=== PATIENT | female | born 1980 | race Caucasian/White ===

== ENCOUNTER 2017-04-13 03:12 | Emergency (ER) | payer OTHER ==
[~2017-04-13] VITALS: Ht 167.6 cm; Wt 83.0 kg
[2017-04-13] MEDS ORDERED: ZOFRAN ODT SL STA (03:39)
[2017-04-13] MEDS ORDERED: TORADOL IM STA (03:39)
--- NOTE | 2017-04-13 03:43 | ER.PDOC ---
General Chief Complaint: Abdomen Pain Stated Complaint: R UPPER QUAD ABD PAIN Time seen by MD: 03:42 Source: patient Exam Limitations: no limitations History of Present Illness Initial Comments RUQ abdominal pain Timing/Duration: 1-3 hours Severity/Quality: moderate, sharpness Radiation: no radiation Associated Symptoms: nausea/vomiting Exacerbated by: nothing Relieved By: nothing Allergies: Coded Allergies: No Known Allergies (Unverified , 04/13/17) Vital Signs First Vital Signs Date Time Temp Pulse Resp B/P (MAP) Pulse Ox O2 Delivery O2 Flow Rate FiO2 04/13/17 03:22 98.0 81 16 100 04/13/17 03:29 125/70 (88) Last Vital Signs Date Time Temp Pulse Resp B/P (MAP) Pulse Ox O2 Delivery O2 Flow Rate FiO2 04/13/17 03:29 98.0 81 16 125/70 (88) 100 Past Medical History Medical History: thyroid disease Surgical History: tubal LMP (females 10-50): tubal Social History Smoking: non-smoker Alcohol Use: occassionally Drug Use: none Constitutional: no symptoms reported Respiratory: no symptoms reported Cardiovascular: no symptoms reported Gastrointestinal: see HPI Genitourinary: no symptoms reported All Other Systems: Reviewed and Negative Physical Exam General Appearance: No Apparent Distress, WD/WN Neck: Non-Tender, Full Range of Motion, Supple, Normal Inspection Respiratory: chest non-tender, lungs clear, normal breath sounds, no respiratory distress, no accessory muscle use Cardiovascular: Normal Peripheral Pulses, Regular Rate, Rhythm, No Edema, No Gallop, No JVD, No Murmur Gastrointestinal: Normal Bowel Sounds, No Organomegaly, No Pulsatile Mass, Guarding, Tenderness (RUQ) Back: Normal Inspection, No CVA Tenderness, No Vertebral Tenderness Extremities: Normal Range of Motion, Non-Tender, Normal Inspection, No Pedal Edema, No Calf Tenderness, Normal Capillary Refill, Pelvis Stable Neurologic/Psychiatric: personal financial representative II-XII NML as Tested, No Motor/Sensory Deficits, Alert, Normal Mood/Affect, Oriented x 3 Skin: Normal Color, Warm/Dry EKG/XRAY/CT/US Utrasound Comments: Gall bladder sludge Course Blood Pressure Systolic: 125 Blood Pressure Diastolic: 70 Blood Pressure Mean: 88 Departure Time of Disposition: 05:42 Disposition: 01 HOME, SELF-CARE Impression: Primary Impression: Gall bladder disease Additional Impressions: Biliary colic UTI (urinary tract infection) Condition: Stable Referrals: VINEET FELIZ PA-C (PCP) PRIMARY CARE PROVIDER Additional Instructions: Cipro Tramadol F/U with Dr. Gaviria in 1-2 days, call for appointment. Problem Qualifiers Additional Impressions: UTI (urinary tract infection) Urinary tract infection type: site unspecified Hematuria presence: without hematuria Qualified Codes: N39.0 - Urinary tract infection, site not specified BOGDAN GEORGE MD Apr 13, 2017 03:43
[2017-04-13] MEDS ORDERED: TORADOL ONE (03:51)
[2017-04-13] MEDS ORDERED: ZOFRAN ODT ONE (03:51)
[2017-04-13 03:53] LABS: BASOPHIL % 0.4 % (0.0-0.2); BILIRUBIN,URINE NEGATIVE (NEGATIVE); EOSINOPHIL # 0.1 10^3/uL (0.0-0.2); EOSINOPHIL % 2.8 % (0.0-5.0); HEMOGLOBIN 11.4 g/dL (12.0-15.0); LYMPHOCYTES # 1.8 10^3/uL (1.0-4.8); LYMPHOCYTES % 36.1 % (24.0-44.0); MEAN CELL HGB 25.4 pg (26-34); MEAN CELL HGB CONCENTRATION 30.8 g/dL (33-37); MEAN CORP VOLUME 82.4 fL (78-100); MEAN PLATELET VOLUME 10.3 fL (7.8-11.0); MONOCYTES # 0.5 10^3/uL (0.3-0.8); MONOCYTES % 9.5 % (5.0-12.0); NEUTROPHIL # 2.6 10^3/uL (1.8-7.7); RED CELL DISTRIBUTION WIDTH 15.8 % (11.5-14.5); UROBILINOGEN,URINE NORMAL (NEGATIVE); WHITE BLOOD CELL 5.1 10^3/uL (4.5-11.0)
[2017-04-13 03:58] LABS: APPEARANCE,URINE CLEAR (CLEAR); UA COLOR YELLOW (YELLOW)
--- NOTE | 2017-04-13 03:59 | PCM.EKG ---
[facility] Test Date: 2017-04-13 Test Time: 03:56:55 Pat Name: RYAN FISCHER Department: Room: Gender: F Greenhouse Worker: CINTHYA : 1980 Requested By: BOGDAN GEORGE Order Number: [id number] Reading MD: Moses Boswell Measurements Intervals [place] Rate: 64 P: 58 OR: 152 QRS: 84 QRSD: 98 T: 74 QT: 410 QTc: 422 Interpretive Statements Normal sinus rhythm with sinus arrhythmia Normal ECG No previous ECG available for comparison Electronically Signed On 04-14-2017 10:04:05 [employer] by Moses Boswell Please click the below link to view image of tracing.
[2017-04-13 04:12] LABS: WBC,URINE 0-2 WBC/HPF (0-2)
--- NOTE | 2017-04-13 04:17 | NUR ---
ULTRASOUND PATIENT TO ULTRASOUND
[2017-04-13 04:23] LABS: CALCIUM 8.9 mg/dL (8.4-10.5); CARBON DIOXIDE 25.6 mmol/L (20.0-32)
--- NOTE | 2017-04-13 04:59 | NUR ---
return to room patient returned to room in stable condition
--- NOTE | 2017-04-13 05:29 | DIREP ---
PROCEDURE:US ABDOMEN LIMITED (SINGLE ORGAN - QUAD) COMPARISON:None. INDICATIONS:RUQ pain, N TECHNIQUE:High resolution sonographic examination was performed of the abdomen. FINDINGS: RIGHT KIDNEY:11.95 cm x 4.26 cm x 4.32 cm, 115.20 ml GALL BLADDER WALL:2.23 mm CBD:3.30 mm PANCREAS:Normal. LIVER:Normal size and echogenicity. No significant masses. BILIARY:Gallbladder sludge with no definite cholelithiasis. RIGHT KIDNEY:11 mm x 6 mm x 6 mm cyst in the lower pole of the right kidney. OTHER:Negative. CONCLUSION:Gallbladder sludge with no definite cholelithiasis or dilated biliary ducts. Small right renal cyst. Right upper quadrant sonogram is otherwise normal. Dictated by: Clinton Gregory M.D. on 04/13/2017 at 05:23 AM
[2017-04-13 05:57] VITALS: BP 122/57
== END 2017-04-13 05:55 | disposition home or self-care (01) ==
LOC: ER 03:12
DX: K80.50 Calculus of bile duct without cholangitis or cholecystitis without obstruction (principal); N39.0 Urinary tract infection, site not specified; E07.9 Disorder of thyroid, unspecified
CPT/HCPCS: 36415; 76705; 80053; 81000; 81025; 83690; 85025; 85610; 86677; 87086; 93005; 96372; 99285; J1885; Q0162

== ENCOUNTER → 2019-06-11 | Outpatient (CLI) | payer OTHER | END | disposition home or self-care (01) | LOC: LAB 15:19 | PROVIDERS: ATTEND Internal Medicine Endocrinology, Diabetes & Metabolism | DX: E03.8 Other specified hypothyroidism (principal) | CPT/HCPCS: 36415; 84439; 84443 ==